=== PATIENT | male | born 2000 ===

== ENCOUNTER 2020-10-26 12:58 | Emergency (ER) | payer SELFPAY ==
[~2020-10-26] VITALS: Ht 172.7 cm; Wt 72.7 kg
[2020-10-26 15:09] VITALS: BP 111/56
== END 2020-10-26 15:18 | disposition home or self-care (01) ==
LOC: EMS 12:58
DX: F10.10 Alcohol abuse, uncomplicated (principal)
CPT/HCPCS: 99283